=== PATIENT | male | born 1935 | race Caucasian/White ===

== ENCOUNTER 2019-08-26 08:54 | Inpatient (IN) | payer MEDICARE, MEDICAID ==
[~2019-08-26] VITALS: Ht 175.3 cm; Wt 66.2 kg
--- NOTE | ~2019-08-26 | EMS ---
[address] [address] EMS Patient Care Report Name: SAUL MARCUS Room: [address] IN M.R.#: [id number] Admission: 08/26/19 Attend Phys: Luis Sauceda Discharge: Date of : 36 Report #: [id number] THIS REPORT FOR: //name// Report Transmitted: 08/26/2019 10:43 EMS Care Summary [facility] Incident [id number] @ 08/26/2019 08:19 Incident Location [address] [place] [address] Patient SAUL MARCUS Male, 83 Years 1935 Patient Address [address] [place] [address] Patient History Diabetes,Hypertension (HTN),Gastro-Esophageal Reflux Disease (GERD),Cardiac Condition - Other, Patient Allergies Codeine,Penicillin allergy,Doxycycline,Ibuprofen,Metformin,Naproxen, Patient Medications Ranitidine, ASA, Lisinopril, Isosorbide, Clopidogrel, Novolog, Finasteride, Nitroglycerin, Atorvastatin, Imodium, Vitamin B12, Levemir, Chief Complaint Dizziness Disposition Transported No Lights/[place] Dispatch Reason Sick Person Transported To [facility] Narrative Med 1 and Engine 1 were dispatched for a [age] year-old male c/o dizziness and vomiting. Upon arrival, the patient was sitting at the dining room table [address] [place] [address] EMS Patient Care Report Name: SAUL MARCUS Room: [address] ADM IN M.R.#: [id number] Admission: 08/26/19 Attend Phys: Luis mar [place] Discharge: Date of : 36 Report #: [id number] sucking a tootsie pop he was accompanied by a nurses aid. The nurses aid reported that he had just eaten his breakfast and taken his medications and he vomited up some of his breakfast. She also reported that he started to stand up and go back to his room and he felt dizzy, and that the patient has dementia it is difficult to get him to answer questions. Patient was assisted to the stretcher and secured via seatbelts and moved to the ambulance without incident. Med 1 went en route to [facility]. In the ambulance, patient's vitals were obtained and he was placed on the orthopedic rn. A 12 lead was obtained it shown Sinus Rhythm. A blood glucose was obtained with a result of 84 mg/dL. IV access was attempted twice it was unsuccessful. The patient's pupils were pin point and patient was given Narcan via nasal atomizer. Patient had no change with the Narcan. Hospital report was given via radio with no questions or orders received or requested. Med 1 arrived at the hospital. Patient was moved to Room 3 via stretcher and patient care was transferred to ER staff without incident. Med 1 returned back in service. [id number] KShook Initial Vitals @08:42P: 78,R: 18,BP: 118/74,GCS: 13,SpO2: 96,Revised Trauma: 12, @08:34P: 78,R: 18,BP: 98/74,GCS: 13,Temp: 97.9F,Glucose: 84,SpO2: 94,Revised Trauma: 12, Assessments @08:26MENTAL:Confused,Person Oriented,SKIN:Cold,Pale,HEENT:Eyes: Left: Constricted,Eyes: Right: Constricted,Head/Face: No Abnormalities,Neck/Airway: No Abnormalities,LUNG SOUNDS:ABDOMEN:PELVIS//GI:EXTREMITIES:Left Arm: No Abnormalities,Right Arm: No Abnormalities,Left Leg: No Abnormalities,Right Leg: No Abnormalities,PULSE:NEURO:Abnormal Gait, Impression Altered Mental Status Procedures @08:36 cc (22 ga) Site: Antecubital-LeftResponse: UnchangedFailed@08:43Naloxone - 4 Milligrams (mg) - IntranasalResponse: Unchanged@08:28StretcherResponse: Unchanged Timeline 08:16,Call Received 08:19,Dispatched 08:19,[place] [address] EMS Patient Care Report Name: SAUL MARCUS Room: [address] ADM IN M.R.#: [id number] Admission: 08/26/19 Attend Phys: Luis Sauceda Discharge: Date of : 36 Report #: [id number] 08:20,On Scene 08:21,At Patient 08:28,Stretcher,Response: Unchanged 08:29,Depart Scene 08:34,BP: 98/74 M,PULSE: 78,RR: 18 R,SPO2: 94 Ox,ETCO2: ,B,PAIN: ,GCS: 13, 08:36, cc 22 ga Site: Antecubital-Left,Response: UnchangedFailed, 08:42,BP: 118/74 M,PULSE: 78,RR: 18 R,SPO2: 96 Ox,ETCO2: ,BG: ,PAIN: ,GCS: 13, 08:43,Naloxone - 4 Milligrams (mg) - Intranasal,Response: Unchanged 08:50,At Destination 09:22,Call Closed 09:22,In District Disclaimer v1.1 Copyright 2020 [employer] This EMS Care Summary contains data elements from the applicable legal record (which may be displayed differently). It is designed to provide pertinent information for the following purposes: continuity of care, clinical quality, and state data reporting. The complete legal record is available to ED staff and administrators of the receiving hospital in [employer]'s Patient Tracker. All data is provided "as is."
--- NOTE | ~2019-08-26 | CON ---
[address] [address] CONSULTATION Name: SAUL MARCUS Room: [address] IN M.R.#: [id number] Admission: 08/26/19 Attend Phys: Luis Sauceda Discharge: Date of : 36 Report #: [id number] THIS REPORT FOR: //name// cc: Sara Sims Ahmad W. DO ~ THIS REPORT FOR: //name// CC: Sara Martini DATE OF SERVICE: 08/27/2019 HISTORY OF PRESENT ILLNESS: This is an 83-year-old male patient who was evaluated by me for altered mental status. The patient does not provide any reliable history. I will try to reach some member of the family. I talked to the patient's nurse and she indicated that this patient has a history of dementia. She has talked to the daughter who indicated that the patient is back to his baseline. The patient had some altered mental status and dizziness. He has some pinpoint pupils when it happened. He has improved and according to the nurses, the daughter told them that the patient is back to his baseline. REVIEW OF SYSTEMS: A 14-point review of system was carried out in this patient. He has a history of stroke and he had one episode of vomiting. He lives in an assisted living. That is all the 14-point review of system I can get in this patient. From the records, it would appear that he has dementia. He lives in assisted living and he has a prior history of stroke. His strokes are showing up on CT of the head and MRI of the brain. I do not know what the etiology of the stroke was. It looks like the patient is already on aspirin and Plavix. He cannot tell me how long he has been taking that. That was his relevant 14-point review of system. PAST MEDICAL HISTORY: Positive for stroke. FAMILY HISTORY: Unavailable from the patient. SOCIAL HISTORY: As per records. The patient lives in assisted living. PHYSICAL EXAMINATION: The patient's examination indicates the patient is alert and responsive, but his memory is very poor. He does not know why he is here and is unable to cooperate with most of the examination. I do not see any focalities the best I can tell in cranial. Neuromuscular examination, but it is tough to tell. He is well-built individual who does not have any dysmorphic features of eyes, ears and face. He has no edema. He has no thyroid mass. His blood pressure is 163/89, respirations 18, pulse is 74, temperature is 97.8. LABORATORY DATA: His white count is normal at 6.6. [place] [address] CONSULTATION Name: SAUL MARCUS Room: [address] IN .R.#: [id number] Admission: 08/26/19 Attend Phys: Luis Sauceda Discharge: Date of : 36 Report #: [id number] carotid Doppler, which was reviewed. MRI showed old strokes with some question of new strokes. IMPRESSION AND PLAN: If this patient is already on a combination of aspirin and Plavix, I am not sure much can be done about the strokes until we find some vasculitis, but even with vasculitis, the management is going to be difficult with what appeared to be pretty significant dementia. I will contact the patient's family to see how aggressive they want to be in this patient. I will get an EEG done because the patient is predisposed for seizures because of the patient's prior history of strokes, which is well demonstrated on the patient's CT scan and MRI and will leave further recommendation. By: 1243 1301Pjuno Ortiz MD /nt
[2019-08-26 08:55] VITALS: BP 111/66
[2019-08-26] MEDS ORDERED: LIPITOR 40 MG T40 M1 PO (08:58)
[2019-08-26] MEDS ORDERED: CHILDREN'S ASPI81 M1 PO (08:58)
[2019-08-26] MEDS ORDERED: GLUCOSAMINE SU500 M1 PO (08:58)
[2019-08-26] MEDS ORDERED: PROSCAR 5MG TABL5 M1 PO (08:58)
[2019-08-26] MEDS ORDERED: PLAVIX 75 MG TA75 MG PO (08:58)
[2019-08-26] MEDS ORDERED: LEVEMIR FL100 UNIT/2 SUBQ (08:59)
[2019-08-26] MEDS ORDERED: ISOSORBIDE MONO30 M1 PO (08:59)
[2019-08-26] MEDS ORDERED: ZESTRIL20 MG PO (08:59)
[2019-08-26] MEDS ORDERED: RANITIDINE HCL150 M1 PO (09:00)
[2019-08-26] MEDS ORDERED: PERINDOPRIL ERBU2 MG PO (09:00)
[2019-08-26] MEDS ORDERED: NOVOLOG MI100 UNIT/M SUBQ (09:00)
[2019-08-26] MEDS ORDERED: IMODIUM A-1 MG/7.5 M PO (09:01)
[2019-08-26] MEDS ORDERED: VITAMIN B-121000 MC2 SUBLING (09:01)
[2019-08-26] MEDS ORDERED: COUGH DROPS5.8 MG MUCOUS MEM (09:01)
[2019-08-26] MEDS ORDERED: NITROSTAT0.4 M1 SUBLING (09:02)
[2019-08-26 09:27] LABS: ABSOLUTE EOSINOPHILS 0.2 thou/uL (0.0-0.7); ABSOLUTE LYMPHOCYTES 0.9 thou/uL (0.8-5.3); ABSOLUTE MONOCYTES 0.6 thou/uL (0.0-1.2); BASOPHILS 0.6 %; EOSINOPHILS 2.4 %; HEMATOCRIT 32.2 % (42.0-52.0); HEMOGLOBIN 10.8 gm/dL (14.0-18.0); MCH 32.4 pg (26.0-34.0); MCHC 33.4 g/dL (28.0-37.0); MCV 97.2 fL (80.0-100.0); MONOCYTES 8.5 %; NUCLEATED RBCS 0 /100WBC; PLATELET COUNT* 134 thou/uL (150-400); POLYS 75.5 %; RBC 3.32 mil/uL (4.50-6.00); RDW-CV 13.4 % (10.5-14.5); WBC 6.6 thou/uL (4.0-11.0)
[2019-08-26 09:33] LABS: CALCIUM 7.5 mg/dL (8.5-10.1); CREATININE 1.2 mg/dL (0.6-1.3)
[2019-08-26 09:34] LABS: APTT 30.3 Seconds (25.0-31.3); INR 1.2; PROTIME 12.2 Seconds (9.20-11.50)
[2019-08-26 09:44] LABS: ALBUMIN 2.8 g/dL (3.4-5.0); TOTAL BILIRUBIN 0.2 mg/dL (<0.1-1.0); TOTAL PROTEIN 5.5 g/dL (6.4-8.2)
[2019-08-26 11:20] VITALS: BP 140/71
[2019-08-26 16:00] VITALS: BP 169/88
[2019-08-26 16:48] LABS: AMP/METHAMP Negative (Negative); BARBITURATES Negative (Negative); BENZODIAZEPINES Negative (Negative); COCAINE Negative (Negative); METHADONE Negative (Negative); OPIATES Negative (Negative); PCP Negative (Negative); THC Negative (Negative)
[2019-08-26 19:30] VITALS: BP 135/73
[2019-08-27] VITALS: BP 126/66
[2019-08-27 04:00] VITALS: BP 126/70
[2019-08-27 05:27] LABS: ALBUMIN 2.8 g/dL (3.4-5.0); ALKALINE PHOSPHATASE 94 U/L (46-116); ANION GAP 7 mmol/L (7-16); BUN 16 mg/dL (7-18); CALCIUM 7.8 mg/dL (8.5-10.1); CHLORIDE 111 mmol/L (98-107); CHOLESTEROL 105 mg/dL (<200); CO2 25 mmol/L (21-32); CREATININE 0.8 mg/dL (0.6-1.3); GLUCOSE 93 mg/dL (70-99); HDL CHOLESTEROL 42 mg/dL (>40); LDL CHOLESTEROL 42 mg/dL (<100); POTASSIUM 3.5 mmol/L (3.5-5.1); SGOT 32 U/L (15-37); SGPT 39 U/L (30-65); SODIUM 143 mmol/L (136-145); TC:HDL 2.5 Ratio (Not establshd); TOTAL BILIRUBIN 0.3 mg/dL (<0.1-1.0); TOTAL PROTEIN 5.7 g/dL (6.4-8.2); TRIGLYCERIDE 106 mg/dL (<150); VLDL 21 mg/dL (<40)
[2019-08-27 05:33] LABS: SERUM ASSESSMENT CLEAR
[2019-08-27 08:00] VITALS: BP 127/83
[2019-08-27 12:27] VITALS: BP 163/89
--- NOTE | 2019-08-27 13:13 | EKG ---
[place] [address] ELECTROCARDIOGRAM REPORT Name: SAUL MARCUS Room: [address] ADM IN .R.#: [id number] Admission: 08/26/19 Attend Phys: Luis mar Sa Discharge: Date of : 37 Date of Service: 08/26/19 0859 Report #: [id number] THIS REPORT FOR: //name// [facility] ED Test Date: 2019-08-26 Test Time: 08:59:22 Pat Name: SAUL MARCUS Department: Room: [facility] Gender: M Snap Attacher: : 1935 Requested By: Sidney Rodriguez Order Number: [id number] MD: Abel Brush Measurements Intervals [place] Rate: 70 P: 52 ID: [id number] QRS: -28 QRSD: 111 T: 106 QT: 432 QTc: 467 Interpretive Statements Sinus rhythm Inferior infarct, old Abnormal lateral Q waves No previous ECG available for comparison Electronically Signed On 08-27-2019 13:11:56 CDT by Abel Brush [email or web address] <ELECTRONICALLY SIGNED> By: Abel Brush MD, [facility] 08/27/19 1311 0859 0859 Abel Brush MD, [facility] /EPI
[2019-08-27 16:12] VITALS: BP 158/85
--- NOTE | 2019-08-27 16:51 | 2DMMODE ---
[place] [address] 2 D/M-MODE ECHOCARDIOGRAM Name: SAUL MARCUS Room: [address] IN .Fawn.#: [id number] Admission: 08/26/19 Attend Phys: Luis mar Sa Discharge: Date of : 37 Date of Service: 08/27/19 1649 Report #: [id number] THIS REPORT FOR: cc: Sara Sims,Abel Cage MD [facility] ~ APPROVED REPORT Study performed: 08/27/2019 13:44:45 EXAM: Comprehensive 2D, Doppler, and color-flow Echocardiogram Patient Location: In-Patient Room #: [facility] Status: routine BSA: 1.80 HR: 69 bpm BP: 126/70 mmHg Rhythm: NSR Other Information Study Quality: Good Indications CVA/TIA Echo Enhancing Agent Indication: Rule out Shunt Agent(s) / Amount(s) Used: Agitated Saline 10 cc 2D Dimensions IVSd: 13.08 (7-11mm) LVOT Diam: 18.78 (18-24mm) LVDd: 43.49 mm PWd: 9.74 (7-11mm) Ascending Ao: 33.66 (22-36mm) LVDs: 33.28 (25-40mm) Aortic Root: 35.79 mm Volumes Left Atrial Volume (Systole) LA ESV Index: 29.30 mL/m2 Aortic Valve AoV Peak Ronny.: 1.39 m/s AO Peak Gr.: 7.77 mmHg LVOT Max P.45 mmHg AO Mean Gr.: 4.16 mmHg LVOT Mean P.62 [place] [address] 2 D/M-MODE ECHOCARDIOGRAM Name: SAUL MARCUS Room: [address] IN .R.#: [id number] Admission: 08/26/19 Attend Phys: Luis mar Sa Discharge: Date of : 37 Date of Service: 08/27/19 1649 Report #: [id number] LVOT Max V: 0.93 m/s AO V2 VTI: 28.91 cm LVOT Mean V: 0.58 m/s ARIC (VTI): 2.06 cm2 LVOT V1 VTI: 21.49 cm Mitral Valve E/A Ratio: 0.47 MV Decel. Time: 260.29 ms MV E Max Ronny.: 0.56 m/s MV PHT: 75.49 ms MVA (PHT): 2.91 cm2 TDI E/Lateral E': 7.00 E/Medial E': 7.00 Medial E' Ronny.: 0.08 m/s Lateral E' Ronny.: 0.08 m/s Pulmonary Valve PV Peak Ronny.: 0.94 m/s PV Peak Gr.: 3.57 mmHg Tricuspid Valve RAP Estimate: 5.00 mmHg TR Peak Gr.: 29.54 mmHg RVSP: 34.00 mmHg PA Pressure: 34.00 mmHg Left Ventricle The left ventricle is normal size. paradoxical septal motion consistent with previous thoracotomy There is normal left ventricular wall thickness. Left ventricular systolic function is normal. The left ventricular ejection fraction is within the normal range. LVEF is 55-60%. Grade I - abnormal relaxation pattern. Right Ventricle The right ventricle is normal size. The right ventricular systolic function is normal. Atria Left atrium is mildly dilated. The interatrial septum is intact with no evidence for an atrial septal defect. The right atrium size is normal. Aortic Valve Mild aortic valve sclerosis. No aortic regurgitation is present. There is no aortic valvular stenosis. Mitral Valve There is mitral annular calcification. [place] [address] 2 D/M-MODE ECHOCARDIOGRAM Name: SAUL MARCUS Room: [address] IN .R.#: [id number] Admission: 08/26/19 Attend Phys: Luis mar Sa Discharge: Date of : 36 Date of Service: 08/27/19 1649 Report #: [id number] evidence of mitral valve stenosis. Tricuspid Valve The tricuspid valve is normal in structure. Mild tricuspid regurgitation. estimated pa pressure 40 mm hg Pulmonic Valve The pulmonary valve is normal in structure. There is no pulmonic valvular regurgitation. Great Vessels The aortic root is normal in size. IVC is normal in size and collapses >50% with inspiration. Pericardium There is no pericardial effusion. <Conclusion> LVEF is 55-60%. Left atrium is mildly dilated. Mild aortic valve sclerosis. The interatrial septum is intact with no evidence for an atrial septal defect. Mild tricuspid regurgitation. estimated pa pressure 40 mm hg <ELECTRONICALLY SIGNED> By: Abel Brush MD, FACC 08/27/191648 48 48 Abel Brush MD, FACC /INF
--- NOTE | 2019-08-27 17:26 | CON ---
[address] [address] CONSULTATION Name: AMRITSAUL Room: [address] IN M.R.#: [id number] Admission: 08/26/19 Attend Phys: Luis Sauceda Discharge: Date of : 36 Report #: [id number] THIS REPORT FOR: //name// cc: Sara Sims Ahmad W. DO THIS REPORT FOR: //name// CC: Sara Martini DATE OF SERVICE: 08/27/2019 CARDIOLOGY CONSULTATION HISTORY OF PRESENT ILLNESS: The patient is an 83-year-old white male, group home patient who I was asked to see because of his history of coronary artery disease. Unfortunately, the patient has never been admitted here to [place] before. He has an extensive past medical history. He apparently has had previous coronary artery bypass surgery and stent placement in [place]. He has had previous left carotid endarterectomy. He has a history of diabetes. He has a history of dementia and is currently in a group home. He was admitted to [place] yesterday with lightheadedness and vomiting. He was brought to the Emergency Room by ambulance. The patient was felt to possibly have a stroke. Because of his history of coronary artery disease, Cardiology consultation was requested. The patient denies any recent chest pain, shortness of breath, palpitations or syncope. PAST MEDICAL HISTORY: Otherwise significant for diabetes. MEDICATIONS: At group home include aspirin, Lipitor, Plavix, Imdur, insulin, lisinopril, Plendil, ranitidine. ALLERGIES: HE HAS AN ALLERGY TO CODEINE, DOXYCYCLINE, PENICILLIN, TERAZOSIN. FAMILY HISTORY: Cannot be obtained. SOCIAL HISTORY: He quit smoking in the past. He is . No alcohol abuse. REVIEW OF SYSTEMS: He apparently had a laparotomy at [place] recently. He denies no history of stroke, asthma, kidney disease or cancer. PHYSICAL EXAMINATION: GENERAL: Revealed an elderly female, appeared in no distress. VITAL SIGNS: Blood pressure 120/70, pulse 60, [place] [address] CONSULTATION Name: SAUL MARCUS Room: [address] IN [facility]#: [id number] Admission: 08/26/19 Attend Phys: Luis Sauceda Discharge: Date of : 36 Report #: [id number] HEENT: He was anicteric. Conjunctivae pink. Mucous membranes moist. NECK: Veins do not appear distended. CHEST: Clear to auscultation. CARDIOVASCULAR: Regular rate and rhythm. ABDOMEN: Soft. EXTREMITIES: Had no edema. SKIN: Warm and dry. NEUROLOGIC: He is able to move all extremities. RADIOLOGICAL DATA: His ECG showed a sinus rhythm, evidence of previous inferior infarction. His x-rays in the Emergency Room recently done yesterday included a chest x-ray that showed normal heart size, clear lung [place]. CT scan of the head was performed yesterday without contrast that showed previous infarction. No acute abnormality. Carotid Doppler study was performed yesterday that showed no significant stenosis. LABORATORY DATA: Sodium 143, creatinine 0.8, albumin 2.8. Troponin 0.06. BNP 948. TSH 0.7. His white blood cell count 6.6, hematocrit 32.2. IMPRESSION AND RECOMMENDATIONS: 1. Coronary artery disease. Previous bypass surgery. The patient is on Plavix. 2. Previous carotid endarterectomy. No restenosis. 3. Hyperlipidemia. The patient is on a statin drug. 4. Hypertension. The patient is on an angiotensin-converting enzyme inhibitor and calcium josé. 5. Dementia. The patient is a no code blue. 6. Dizziness. Reason unclear. 7. Nausea and vomiting. No evidence of acute abdomen. 8. Previous stroke. 9. Anemia. No history of bleeding. <ELECTRONICALLY SIGNED> By: Abel Brush MD, [facility] 08/27/19 1726 0907 [id number] Brush MD, [facility] /nt
[2019-08-27 19:40] VITALS: BP 139/69
[2019-08-28 00:37] VITALS: BP 108/64
[2019-08-28 02:07] LABS: GLYCOHEMOGLOBIN (HGB A1C) 6.5 % (4.8-5.6)
[2019-08-28 03:56] VITALS: BP 92/52
[2019-08-28 08:00] VITALS: BP 96/52
[2019-08-28 11:47] VITALS: BP 144/79
[2019-08-28] MEDS ORDERED: NOVOLOG MI100 UNIT/M SUBQ (12:28)
[2019-08-28] MEDS ORDERED: CHILDREN'S ASPI81 M1 PO (12:28)
[2019-08-28 13:53] VITALS: BP 144/79
== END 2019-08-28 14:45 | DRG 64 ==
LOC: M.ERS 08:54 → M.TBA-ER 10:18 → M.2W 10:18
PROVIDERS: Emergency Medicine Emergency Medical Services; ADMIT Family Medicine
DX: I63.89 Other cerebral infarction (principal); E43 Unspecified severe protein-calorie malnutrition; I24.8 Other forms of acute ischemic heart disease; E78.5 Hyperlipidemia, unspecified; K21.9 Gastro-esophageal reflux disease without esophagitis; F03.90 Unspecified dementia, unspecified severity, without behavioral disturbance, psychotic disturbance, mood disturbance, and anxiety; I25.10 Atherosclerotic heart disease of native coronary artery without angina pectoris; E83.51 Hypocalcemia; I10 Essential (primary) hypertension; D64.9 Anemia, unspecified; E11.9 Type 2 diabetes mellitus without complications; Z68.21 Body mass index [BMI] 21.0-21.9, adult; Z79.4 Long term (current) use of insulin; Z79.82 Long term (current) use of aspirin; Z79.01 Long term (current) use of anticoagulants; Z79.899 Other long term (current) drug therapy; Z88.5 Allergy status to narcotic agent; Z88.0 Allergy status to penicillin; Z88.8 Allergy status to other drugs, medicaments and biological substances; Z87.891 Personal history of nicotine dependence; Z95.5 Presence of coronary angioplasty implant and graft; Z95.1 Presence of aortocoronary bypass graft

== ENCOUNTER 2021-06-01 12:31 | Inpatient (IN) | payer MEDICARE, MEDICAID ==
[~2021-06-01] VITALS: Ht 175.3 cm; Wt 51.1 kg
--- NOTE | ~2021-06-01 | EMS ---
[address] [address] EMS Patient Care Report Name: SAUL MARCUS Room: [facility]#: [id number] Admission: 06/01/21 Attend Phys: Discharge: Date of : 36 Report #: [id number] THIS REPORT FOR: //name// Report Transmitted: 06/01/2021 12:58 EMS Care Summary [facility] Incident [id number] @ 06/01/2021 11:47 Incident Location [address] [place] [address] Patient SAUL MARCUS Male, 85 Years 1935 Patient Address [address] [place] [address] Patient History Hypertension (HTN),Gastro-Esophageal Reflux Disease (GERD),Cardiac Condition - Other,Osteoarthritis,Type 2 Diabetes, Patient Allergies Codeine,Penicillin allergy,Ibuprofen, Patient Medications Metformin, Chief Complaint Diarrhea Disposition Transported No Lights/[place] Dispatch Reason Sick Person Transported To [facility] Narrative Med 1 and Engine 1 were dispatched for a [age] year old male who lives at [facility] an assisted living facility. Upon arrival, staff met us at the door and led us to the patients room they said he has had nausea and diarrhea [address] [address] EMS Patient Care Report Name: SAUL MARCUS Room: [facility]#: [id number] Admission: 06/01/21 Attend Phys: Discharge: Date of : 36 Report #: [id number] for the last week and his Oxygen saturations were low. They contacted his physician and told them to call 911 for hypoxia. Upon arrival, patient was sitting on his couch very lethargic and he had uneaten plates of food on his end table. Patient was not able to answer our questions because he was so lethargic. Nursing staff reported this is not normal for him. Patient's initial Oxygen saturation was 86% on room air. Patient was place on a NC at 6 lpm. Patient was able to follow commands and was assisted to a standing position and moved onto our stretcher. Patient was secured via seatbelts and moved to the ambulance without incident. In the ambulance, patient was placed on capnography and and vitals were obtained. Patient was placed on the quality assurance monitor chassis. IV access was attempted 2x and was unsuccessful. Patient's pupils were pinpoint patient was given Narcan 4mg via nasal atomizer. Patient became more alert for a few seconds then went back to being lethargic. Patients Oxygen saturation was still low so patient was placed on a NRB at 15 lpm. Patients Oxygen saturation improved. Hospital report was given to [facility] via radio no questions or orders were received or requested. Med 1 arrived at the hospital. Patient was octavia into the ER via stretcher without incident to room 16. Patient care was transferred to ER staff. Med 1 returned back into service. Initial Vitals @11:59P: 91,SpO2: 73, @12:07P: 88,EtCO2: 7,SpO2: 87, @11:58P: 88,BP: 130/64,SpO2: 77, @12:06P: 90,EtCO2: 4,SpO2: 87, @12:03P: 89,EtCO2: 26,SpO2: 76, @11:52BP: 114/68, @12:17P: 86,R: 14,EtCO2: 9,SpO2: 100, @12:22P: 85,R: 16,EtCO2: 30,SpO2: 99, @12:05P: 91,R: 14,EtCO2: 7,SpO2: 86, @12:12P: 87,R: 18,EtCO2: 15,SpO2: 96, @12:01P: 129,R: 16,GCS: 15,SpO2: 75, @12:18P: 87,R: 18,BP: 138/68,Pain: 0/10,GCS: 15,EtCO2: 10,SpO2: 94,Revised Trauma: 12, @12:08P: 88,R: 14,BP: 134/77,Pain: 0/10,GCS: 15,Revised Trauma: 12, Impression Dehydration Timeline 11:47,Call Received [facility] [address] [place] [address] EMS Patient Care Report Name: SAUL [facility]ARCUS [id number] Admission: 06/01/21 Attend Phys: Discharge: Date of : 36 Report #: [id number] 11:47,Dispatched 11:47,En Route 11:48,On Scene 11:49,At Patient 11:52,BP: 114/68 M,PULSE: ,RR: R,SPO2: Ox,ETCO2: ,BG: ,PAIN: ,GCS: , 11:58,BP: 130/64 M,PULSE: 88,RR: R,SPO2: 77 Ox,ETCO2: ,BG: ,PAIN: ,GCS: , 11:59,BP: / M,PULSE: 91,RR: R,SPO2: 73 Ox,ETCO2: ,BG: ,PAIN: ,GCS: , 12:01,BP: / M,PULSE: 129,RR: 16 R,SPO2: 75 Ox,ETCO2: ,BG: ,PAIN: ,GCS: 15, 12:03,BP: / M,PULSE: 89,RR: R,SPO2: 76 Ox,ETCO2: 26 ,BG: ,PAIN: ,GCS: , 12:05,BP: / M,PULSE: 91,RR: 14 R,SPO2: 86 Ox,ETCO2: 7 ,BG: ,PAIN: ,GCS: , 12:06,BP: / M,PULSE: 90,RR: R,SPO2: 87 Ox,ETCO2: 4 ,BG: ,PAIN: ,GCS: , 12:07,BP: / M,PULSE: 88,RR: R,SPO2: 87 Ox,ETCO2: 7 ,BG: ,PAIN: ,GCS: , 12:08,Depart Scene 12:08,BP: 134/77 M,PULSE: 88,RR: 14 R,SPO2: Ox,ETCO2: ,BG: ,PAIN: 0,GCS: 15, 12:12,BP: / M,PULSE: 87,RR: 18 R,SPO2: 96 Ox,ETCO2: 15 ,BG: ,PAIN: ,GCS: , 12:17,BP: / M,PULSE: 86,RR: 14 R,SPO2: 100 Ox,ETCO2: 9 ,BG: ,PAIN: ,GCS: , 12:18,BP: 138/68 M,PULSE: 87,RR: 18 R,SPO2: 94 Ox,ETCO2: 10 ,BG: ,PAIN: 0,GCS: 15, 12:22,BP: / M,PULSE: 85,RR: 16 R,SPO2: 99 Ox,ETCO2: 30 ,BG: ,PAIN: ,GCS: , 12:27,At Destination 12:58,Call Closed 12:58,In District Disclaimer v1.1 Copyright 2021 [employer] This EMS Care Summary contains data elements from the applicable legal record (which may be displayed differently). It is designed to provide pertinent information for the following purposes: continuity of care, clinical quality, and state data reporting. The complete legal record is available to ED staff and administrators of the receiving hospital in [employer]'s Patient Tracker. All data is provided "as is."
[~2021-06-01 12:31] MED LIST: CHILDREN'S ASPI81 M1 PO; COUGH DROPS5.8 MG MUCOUS MEM; GLUCOSAMINE SU500 M1 PO; IMODIUM A-1 MG/7.5 M PO; ISOSORBIDE MONO30 M1 PO; LEVEMIR FL100 UNIT/2 SUBQ; LIPITOR 40 MG T40 M1 PO; NITROSTAT0.4 M1 SUBLING; NOVOLOG MI100 UNIT/M SUBQ; PERINDOPRIL ERBU2 MG PO; PLAVIX 75 MG TA75 MG PO; PROSCAR 5MG TABL5 M1 PO; RANITIDINE HCL150 M1 PO; VITAMIN B-121000 MC2 SUBLING; ZESTRIL20 MG PO
[2021-06-01] MEDS ORDERED: FAMOTIDINE 20 M20 MG PO (12:42)
[2021-06-01] MEDS ORDERED: FLONASE 0.05%50 MCG NARES (12:42)
[2021-06-01] MEDS ORDERED: METFORMIN HCL500 M3 PO (12:43)
[2021-06-01 13:45] LABS: PLATELET ESTIMATE ADEQUATE
[2021-06-01 14:13] LABS: BASOPHILS 0.2 %; NUCLEATED RBCS 0 /100WBC
[2021-06-01 14:14] LABS: ABSOLUTE MONOCYTES 0.5 thou/uL (0.0-1.2); ABSOLUTE NEUTROPHILS 7.9 thou/uL (1.6-8.1); HEMATOCRIT 37.9 % (42.0-52.0); HEMOGLOBIN 12.4 gm/dL (14.0-18.0); MCH 30.5 pg (26.0-34.0); MCHC 32.6 g/dL (28.0-37.0); MCV 93.4 fL (80.0-100.0); RBC 4.06 mil/uL (4.50-6.00); RDW-CV 13.2 % (10.5-14.5); WBC 9.4 thou/uL (4.0-11.0)
[2021-06-01 14:15] LABS: MPV 10.2 fl. (7.2-11.1); PLATELET COUNT* 192 thou/uL (150-400)
[2021-06-01 14:54] LABS: URINE BLOOD 2+ (Negative); URINE CLARITY CLEAR; URINE COLOR YELLOW; URINE GLUCOSE-RANDOM TRACE (Negative); URINE KETONES TRACE (Negative); URINE LEUKOCYTES-REFLEX NEGATIVE (Negative); URINE NITRITE-REFLEX NEGATIVE (Negative); URINE PROTEIN 2+ (Negative); URINE SPECIFIC GRAVITY 1.025 (1.005-1.030); URINE UROBILINOGEN 0.2 E.U./dl (0.2-1.0)
[2021-06-01 14:56] LABS: ICTOTEST (BILI CONFIRMATORY) Negative (Negative); URINE BILIRUBIN 2+ (Negative)
[2021-06-01 15:03] LABS: AMP/METHAMP Negative (Negative); BACTERIA-REFLEX 1-9 Few /HPF (None Seen); BARBITURATES Negative (Negative); BENZODIAZEPINES Negative (Negative); COCAINE Negative (Negative); CRYSTALS None Seen /LPF (None Seen); HYALINE CASTS 0-3 Few /LPF (None Seen); METHADONE Negative (Negative); OPIATES Negative (Negative); PCP Negative (Negative); SQUAMOUS NONE SEEN /LPF (0-3); THC Negative (Negative); URINE WBC-REFLEX 0-5 Rare /HPF (0-5)
[2021-06-01 15:03] LABS: CALCIUM 7.5 mg/dL (8.5-10.1); CREATININE 1.2 mg/dL (0.6-1.3); POTASSIUM 3.2 mmol/L (3.5-5.1)
[2021-06-01 15:04] LABS: URINE RBC 3-10 Few /HPF (0-2)
[2021-06-01 15:14] LABS: ALBUMIN 2.2 g/dL (3.4-5.0); TOTAL BILIRUBIN 0.4 mg/dL (<0.1-1.0); TOTAL PROTEIN 5.6 g/dL (6.4-8.2)
[2021-06-01 18:32] VITALS: BP 113/64
[2021-06-01 21:46] VITALS: BP 132/70
[2021-06-02] VITALS: BP 183/96
[2021-06-02 04:00] VITALS: BP 163/90
[2021-06-02 09:15] VITALS: BP 137/85
--- NOTE | 2021-06-02 10:02 | EKG ---
[place] [address] ELECTROCARDIOGRAM REPORT Name: SAUL MARCUS Francisco Room: [address] IN [facility].#: [id number] Admission: 06/01/21 Attend Phys: Glenna Guillaume Discharge: Date of : 37 Date of Service: 06/01/21 1253 Report #: [id number] THIS REPORT FOR: //name// [facility] ED Test Date: 2021-06-01 Test Time: 12:53:13 Pat Name: SAUL MARCUS Department: Room: Gender: M Senior Environmental Engineer: : 1935 Requested By: Sidney Rodriguez Order Number: [id number] MD: Gabriel Henderson Measurements Intervals [place] Rate: 82 P: 53 AR: 139 QRS: 3 QRSD: 106 T: 66 QT: 406 QTc: 475 Interpretive Statements Sinus rhythm Probable left atrial enlargement Low voltage, extremity leads Diffuse nonspecific ST-T alterations Compared to ECG 08/26/2019 08:59:22 Low QRS voltage now present ST (T wave) deviation now present Myocardial infarct finding no longer present Q waves no longer present Electronically Signed On 06-01-2021 14:14:26 [facility] by Gabriel Henderson [email or web address] <ELECTRONICALLY SIGNED> By: Gabriel Henderson MD, [facility] 06/01/21 1414 1253 1253 Gabriel Henderson MD, [facility] /EPI
[2021-06-02 12:09] VITALS: BP 159/74
[2021-06-02 17:20] VITALS: BP 158/78
[2021-06-02 20:00] VITALS: BP 139/80
[2021-06-03] VITALS: BP 135/75
[2021-06-03 08:00] VITALS: BP 127/76
[2021-06-03 12:35] VITALS: BP 155/85
[2021-06-03 16:00] VITALS: BP 155/85
[2021-06-03 20:00] VITALS: BP 150/59
[2021-06-04] VITALS (7 sets, daily range): BP systolic 125–175; BP diastolic 65–100
[2021-06-04 04:19] LABS: HEMATOCRIT 37.4 % (42.0-52.0); HEMOGLOBIN 12.1 gm/dL (14.0-18.0); MCH 30.8 pg (26.0-34.0); MCHC 32.3 g/dL (28.0-37.0); MCV 95.4 fL (80.0-100.0); MPV 9.5 fl. (7.2-11.1); NUCLEATED RBCS 0 /100WBC; PLATELET COUNT* 230 thou/uL (150-400); RBC 3.92 mil/uL (4.50-6.00); RDW-CV 13.1 % (10.5-14.5); WBC 9.3 thou/uL (4.0-11.0)
[2021-06-04 04:47] LABS: CALCIUM 7.6 mg/dL (8.5-10.1); CREATININE 0.8 mg/dL (0.6-1.3); MAGNESIUM 1.4 mg/dL (1.8-2.4); PHOSPHORUS* 1.2 mg/dL (2.5-4.9); TOTAL BILIRUBIN 0.6 mg/dL (<0.1-1.0); TOTAL PROTEIN 5.4 g/dL (6.4-8.2)
[2021-06-04 04:55] LABS: POTASSIUM 2.9 mmol/L (3.5-5.1)
[2021-06-04 06:16] LABS: ABSOLUTE EOSINOPHILS 0.1 thou/uL (0.0-0.7); ABSOLUTE LYMPHOCYTES 0.5 thou/uL (0.8-5.3); ABSOLUTE MONOCYTES 0.5 thou/uL (0.0-1.2); ABSOLUTE NEUTROPHILS 8.3 thou/uL (1.6-8.1); HYPOCHROMASIA 1+; PLATELET ESTIMATE ADEQUATE
[2021-06-04 11:08] LABS: BE 6.3 mmol/L (-2 to +3); PCO2 39.1 mmHg (35.0-45.0); pH 7.501 (7.340-7.450)
[2021-06-04 11:10] LABS: PO2 54.8 mmHg (75.0-100.0)
[2021-06-04 12:23] LABS: APTT 38.9 Seconds (25.0-31.3); PROTIME 20.4 Seconds (9.20-11.50)
[2021-06-04 14:02] LABS: BE 7.4 mmol/L (-2 to +3); PCO2 40.5 mmHg (35.0-45.0); pH 7.504 (7.340-7.450)
[2021-06-04 16:37] LABS: PCO2 40.1 mmHg (35.0-45.0); PO2 80.5 mmHg (75.0-100.0); pH 7.476 (7.340-7.450)
[2021-06-05 04:00] VITALS: BP 148/90
[2021-06-05 07:22] LABS: ABSOLUTE LYMPHOCYTES 0.4 thou/uL (0.8-5.3); ABSOLUTE MONOCYTES 0.3 thou/uL (0.0-1.2); ABSOLUTE NEUTROPHILS 8.2 thou/uL (1.6-8.1); BASOPHILS 0.2 %; EOSINOPHILS 0.2 %; HEMATOCRIT 35.4 % (42.0-52.0); HEMOGLOBIN 11.6 gm/dL (14.0-18.0); LYMPHOCYTES 4.9 %; MCH 30.5 pg (26.0-34.0); MCHC 32.7 g/dL (28.0-37.0); MCV 93.1 fL (80.0-100.0); MPV 10.2 fl. (7.2-11.1); NUCLEATED RBCS 0 /100WBC; PLATELET COUNT* 211 thou/uL (150-400); POLYS 91.7 %; RBC 3.81 mil/uL (4.50-6.00)
[2021-06-05 07:42] LABS: CALCIUM 7.3 mg/dL (8.5-10.1); CREATININE 0.9 mg/dL (0.6-1.3); PHOSPHORUS* 1.4 mg/dL (2.5-4.9); POTASSIUM 3.5 mmol/L (3.5-5.1); TOTAL BILIRUBIN 0.6 mg/dL (<0.1-1.0)
[2021-06-05 08:00] VITALS: BP 147/86
[2021-06-05 16:00] VITALS: BP 136/79
[2021-06-05 17:45] LABS: APTT 39.5 Seconds (25.0-31.3); INR 2.5; PROTIME 24.6 Seconds (9.20-11.50)
[2021-06-05 20:15] VITALS: BP 102/59
[2021-06-06] VITALS: BP 130/67
[2021-06-06 04:00] VITALS: BP 144/89
[2021-06-06 07:35] LABS: GLYCOHEMOGLOBIN (HGB A1C) 11.1 % (4.8-5.6)
[2021-06-06 08:00] VITALS: BP 147/86
[2021-06-06 08:50] LABS: ABSOLUTE LYMPHOCYTES 0.4 thou/uL (0.8-5.3); ABSOLUTE MONOCYTES 0.2 thou/uL (0.0-1.2); ABSOLUTE NEUTROPHILS 10.6 thou/uL (1.6-8.1); BASOPHILS 0.3 %; HEMATOCRIT 40.2 % (42.0-52.0); LYMPHOCYTES 3.8 %; MCH 30.6 pg (26.0-34.0); MCHC 32.3 g/dL (28.0-37.0); MCV 94.6 fL (80.0-100.0); MONOCYTES 2.1 %; MPV 9.9 fl. (7.2-11.1); NUCLEATED RBCS 0 /100WBC; PLATELET COUNT* 190 thou/uL (150-400); POLYS 93.8 %; RBC 4.25 mil/uL (4.50-6.00); RDW-CV 13.1 % (10.5-14.5); WBC 11.3 thou/uL (4.0-11.0)
[2021-06-06 08:55] LABS: APTT 38.3 Seconds (25.0-31.3); INR 2.2; PROTIME 22.3 Seconds (9.20-11.50)
[2021-06-06 09:18] LABS: ALBUMIN 2.2 g/dL (3.4-5.0); CALCIUM 8.1 mg/dL (8.5-10.1); CREATININE 0.9 mg/dL (0.6-1.3); MAGNESIUM 1.9 mg/dL (1.8-2.4); PHOSPHORUS* 2.4 mg/dL (2.5-4.9); POTASSIUM 3.3 mmol/L (3.5-5.1); TOTAL BILIRUBIN 0.6 mg/dL (<0.1-1.0); TOTAL PROTEIN 6.2 g/dL (6.4-8.2)
[2021-06-06 12:48] VITALS: BP 119/68
[2021-06-06 17:34] VITALS: BP 125/76
[2021-06-06 20:00] VITALS: BP 108/62
[2021-06-07] VITALS: BP 127/80
[2021-06-07 04:00] VITALS: BP 155/80
[2021-06-07 05:12] LABS: HEMATOCRIT 34.5 % (42.0-52.0); HEMOGLOBIN 11.3 gm/dL (14.0-18.0); MCH 30.5 pg (26.0-34.0); MCHC 32.7 g/dL (28.0-37.0); MCV 93.1 fL (80.0-100.0); MPV 9.8 fl. (7.2-11.1); NUCLEATED RBCS 0 /100WBC; PLATELET COUNT* 194 thou/uL (150-400); RDW-CV 13.3 % (10.5-14.5); WBC 15.2 thou/uL (4.0-11.0)
[2021-06-07 05:35] LABS: ALBUMIN 1.9 g/dL (3.4-5.0); CALCIUM 7.9 mg/dL (8.5-10.1); POTASSIUM 3.3 mmol/L (3.5-5.1); TOTAL BILIRUBIN 0.4 mg/dL (<0.1-1.0); TOTAL PROTEIN 5.4 g/dL (6.4-8.2)
[2021-06-07 07:00] VITALS: BP 128/76
[2021-06-07 07:58] LABS: ABSOLUTE LYMPHOCYTES 0.6 thou/uL (0.8-5.3); ABSOLUTE NEUTROPHILS 14.4 thou/uL (1.6-8.1)
[2021-06-07 07:59] LABS: ABSOLUTE MONOCYTES 0.2 thou/uL (0.0-1.2); PLATELET ESTIMATE ADEQUATE
[2021-06-07 12:00] VITALS: BP 146/59
[2021-06-07 20:30] VITALS: BP 83/56
[2021-06-08 00:25] VITALS: BP 112/82
[2021-06-08 04:20] VITALS: BP 147/79
[2021-06-08 04:26] LABS: ABSOLUTE LYMPHOCYTES 0.2 thou/uL (0.8-5.3); ABSOLUTE MONOCYTES 0.2 thou/uL (0.0-1.2); ABSOLUTE NEUTROPHILS 14.5 thou/uL (1.6-8.1); BASOPHILS 0.2 %; HEMATOCRIT 34.4 % (42.0-52.0); HEMOGLOBIN 11.4 gm/dL (14.0-18.0); LYMPHOCYTES 1.7 %; MCH 30.5 pg (26.0-34.0); MCHC 33.1 g/dL (28.0-37.0); MCV 92.4 fL (80.0-100.0); MONOCYTES 1.4 %; MPV 9.3 fl. (7.2-11.1); NUCLEATED RBCS 0 /100WBC; PLATELET COUNT* 199 thou/uL (150-400); POLYS 96.7 %; RBC 3.72 mil/uL (4.50-6.00)
[2021-06-08 04:38] LABS: ALBUMIN 1.9 g/dL (3.4-5.0); CALCIUM 7.4 mg/dL (8.5-10.1); CREATININE 1.1 mg/dL (0.6-1.3); POTASSIUM 4.1 mmol/L (3.5-5.1); TOTAL BILIRUBIN 0.5 mg/dL (<0.1-1.0); TOTAL PROTEIN 5.2 g/dL (6.4-8.2)
[2021-06-08 08:29] VITALS: BP 163/77
[2021-06-08 14:18] VITALS: BP 120/69
[2021-06-08 18:45] VITALS: BP 108/59
[2021-06-08 22:00] VITALS: BP 110/66
[2021-06-09] VITALS: BP 133/66
[2021-06-09 04:00] VITALS: BP 144/70
[2021-06-09 06:16] LABS: ABSOLUTE LYMPHOCYTES 0.4 thou/uL (0.8-5.3); ABSOLUTE MONOCYTES 0.6 thou/uL (0.0-1.2); ABSOLUTE NEUTROPHILS 17.7 thou/uL (1.6-8.1); HEMATOCRIT 35.2 % (42.0-52.0); HEMOGLOBIN 11.5 gm/dL (14.0-18.0); MCH 30.1 pg (26.0-34.0); MCHC 32.8 g/dL (28.0-37.0); MCV 91.9 fL (80.0-100.0); MONOCYTES 3.3 %; MPV 9.3 fl. (7.2-11.1); NUCLEATED RBCS 0 /100WBC; PLATELET COUNT* 204 thou/uL (150-400); POLYS 94.7 %; RBC 3.83 mil/uL (4.50-6.00); RDW-CV 13.1 % (10.5-14.5); WBC 18.7 thou/uL (4.0-11.0)
[2021-06-09 06:27] LABS: APTT 50.9 Seconds (25.0-31.3); PROTIME 20.2 Seconds (9.20-11.50)
[2021-06-09 06:36] LABS: ALBUMIN 1.9 g/dL (3.4-5.0); CALCIUM 7.5 mg/dL (8.5-10.1); CREATININE 1.2 mg/dL (0.6-1.3); POTASSIUM 4.1 mmol/L (3.5-5.1); TOTAL BILIRUBIN 0.4 mg/dL (<0.1-1.0); TOTAL PROTEIN 5.3 g/dL (6.4-8.2)
[2021-06-09 07:50] VITALS: BP 113/73
[2021-06-09 12:00] VITALS: BP 114/62
[2021-06-09 16:00] VITALS: BP 94/56
--- NOTE | 2021-06-09 19:16 | CON ---
[address] [address] CONSULTATION Name: SAUL MARCUS Room: [address] IN .R.#: [id number] Admission: 06/01/21 Attend Phys: Nii Leonardo Discharge: Date of : 37 Report #: [id number] THIS REPORT FOR: cc: Sara Sims Ahmad W. DO Pervez, Adeel MD ~ DATE OF CONSULTATION: 06/05/2021 REQUESTING PHYSICIAN: Consult has been requested by Dr. Zheng Jensen. INDICATION FOR CONSULTATION: Acute hypoxemic respiratory failure secondary to COVID-19. HISTORY OF PRESENT ILLNESS: This is an 85-year-old gentleman, is a resident of a long-term care facility. I do not see documentation of him being on oxygen previously, does have a history of coronary artery disease as well as CABG, left ventricular ejection fraction previously is normal without elevation in right heart pressures. He also does have a history of dementia. The patient currently is severely hypoxemic. He is on 90% FiO2 with 50 liters flow and is barely saturating around 90%. He did have an episode where there was a blood pressure recorded up to 70 systolic this morning, and the patient at that time did receive a fluid bolus. The patient's blood pressure right now is in the range of 135. He does have significant electrolyte abnormalities; however, his BUN and creatinine are normal. He has a midline in place. Interestingly, there is an INR, which was done yesterday, which is 2.0. The patient is not known to be on Coumadin previously. The patient is confused and is unable to provide a further history or review of systems. PAST MEDICAL HISTORY: Coronary artery disease, status post CABG. Previous echo shows a left ventricular ejection fraction 55-60%, pulmonary artery systolic 34, dementia, diabetes, carotid artery surgery on the left side, hypertension, osteoarthritis, chronic hydrocele, benign prostatic hypertrophy. SOCIAL HISTORY: Resident of a long-term care facility, has a previous history of smoking, unable to quantify exactly at this time. ALLERGIES: There are multiple allergies listed on the records that this is reviewed. Per the notes from the hospitalist service, DEXAMETHASONE WAS HELD DUE TO ALLERGY. I DO SEE AN ALLERGY TO FLUDROCORTISONE; HOWEVER, I DO NOT SEE DOCUMENTATION OF A DEXAMETHASONE ALLERGY. CURRENT MEDICATIONS: List in [employer] reviewed. HOME MEDICATIONS: List in [employer] reviewed. Note, INR of 2.0. Note, absence of Coumadin [place] [address] CONSULTATION Name: SAUL MARCUS Room: [address]#: [id number] Admission: 06/01/21 Attend Phys: Nii Leonardo Discharge: Date of : 37 Report #: [id number] FAMILY HISTORY: Not available. PHYSICAL EXAMINATION: GENERAL: He is awake. He is confused. His vitals in the records reviewed. NECK: Does not show raised JVP. CHEST: Breath sounds bilaterally equal. No added sounds. HEART: Regular. No murmur. ABDOMEN: Soft and nontender. EXTREMITIES: Lower extremities, no edema, no calf tenderness. LABORATORY DATA: Chest x-ray from yesterday in [facility] reviewed. Venous Dopplers negative. He does have extensive bilateral infiltrates. ASSESSMENT AND PLAN: 1. Acute hypoxemic respiratory failure secondary to COVID-19. Continue to titrate oxygen. If he is able to wear a BiPAP while asleep, this will be of benefit. 2. COVID-19. I will investigate further regarding what his POSSIBLE ALLERGY TO DEXAMETHASONE IS. IF DEXAMETHASONE WAS ONLY HELD DUE TO REPORTED ALLERGY TO FLUDROCORTISONE, THEN I WOULD DISREGARD THIS AND I WOULD START DEXAMETHASONE, IF THERE IS A TRUE DEXAMETHASONE ALLERGY THEN WE CAN GIVE SOLU-MEDROL INSTEAD. I ordered 1 dose of Solu-Medrol now. I will investigate this further. Currently, the patient is ordered 6 mg of dexamethasone to start tomorrow. Considering severe hypoxemia, I will be inclined to increase this dose. The patient also is on remdesivir. I agree and will continue remdesivir. We will check on the availability of Actemra, if Actemra is available would recommend administering Actemra as well. 3. Pulmonary infiltrates. The patient is on levofloxacin. I do not feel strongly regarding broadening antibiotic coverage at this time. Note that the patient has a history of multiple allergies. I am not certain if the patient in fact is allergic to these medications should he decline or fail to improve, then recommend adding linezolid. I would check a nasal swab for methicillin-resistant Staphylococcus aureus. I will order a nasal swab for methicillin-resistant Staphylococcus aureus in case it is performed. It will be of benefit. 4. History of smoking/possible chronic obstructive pulmonary disease. He is on p.r.n. albuterol. I will order scheduled Brovana as well steroids as above. 5. Fluid overload/hypotension. I feel that he is total body fluid overloaded. He did have hypotension earlier, but blood pressure right now is in the range of 135 systolic. So, I went ahead and cautiously ordered a 100 of Aldactone and 20 of Lasix. Recommend also replacing his electrolytes. Recommend checking electrolytes tomorrow and replacing further as indicated. If he is hypotensive, then I recommend giving him p.r.n., midodrine. He has a midline [place] [address] CONSULTATION Name: SAUL MARCUS Room: [address] IN [facility].#: [id number] Admission: 06/01/21 Attend Phys: Nii Leonardo Discharge: Date of : 37 Report #: [id number] will not have a PICC line available this weekend, therefore it may be of benefit to proceed with a PICC line at this time if available. 6. Elevated INR, the patient either has a previous history of Coumadin use, which we are not available of or otherwise he is coagulopathic. We will repeat an INR now. I asked the patient's nurse to call the correction and we will try to find out if he had Coumadin use. I would repeat coags at this time as well. If he, in fact, does not have Coumadin use, then in that case, I will broaden antibiotic coverage and give him linezolid. 7. Evaluation for thromboembolic phenomena. Venous Dopplers are negative. He has a CTA chest ordered. We reviewed regarding whether he had Coumadin use previously or not as above. 8. Gastrointestinal prophylaxis, on Protonix. 9. Clostridium difficile prophylaxis, Lactinex. 10. Diabetes. He is already on an insulin sliding scale. The patient is critically ill at this time. Total time spent providing critical care to this patient today exceeds 42 minutes. <ELECTRONICALLY SIGNED> By: Mat Davidson MD 06/09/216 1446 Adl Davidson MD /nt
[2021-06-09 21:00] VITALS: BP 103/56
[2021-06-10] VITALS: BP 134/80
[2021-06-10 04:00] VITALS: BP 116/59
[2021-06-10 05:17] LABS: HEMATOCRIT 36.5 % (42.0-52.0); HEMOGLOBIN 11.8 gm/dL (14.0-18.0); MCH 29.8 pg (26.0-34.0); MCHC 32.4 g/dL (28.0-37.0); MCV 91.8 fL (80.0-100.0); MPV 9.1 fl. (7.2-11.1); NUCLEATED RBCS 0 /100WBC; PLATELET COUNT* 164 thou/uL (150-400); RBC 3.97 mil/uL (4.50-6.00); RDW-CV 13.3 % (10.5-14.5); WBC 20.2 thou/uL (4.0-11.0)
[2021-06-10 05:42] LABS: ALBUMIN 1.8 g/dL (3.4-5.0); CALCIUM 7.6 mg/dL (8.5-10.1); CREATININE 1.4 mg/dL (0.6-1.3); MAGNESIUM 1.9 mg/dL (1.8-2.4); POTASSIUM 4.3 mmol/L (3.5-5.1); TOTAL BILIRUBIN 0.4 mg/dL (<0.1-1.0); TOTAL PROTEIN 5.1 g/dL (6.4-8.2)
[2021-06-10 07:05] LABS: ABSOLUTE LYMPHOCYTES 0.4 thou/uL (0.8-5.3); ABSOLUTE MONOCYTES 0.4 thou/uL (0.0-1.2); ABSOLUTE NEUTROPHILS 19.4 thou/uL (1.6-8.1); PLATELET ESTIMATE ADEQUATE
[2021-06-10 09:00] VITALS: BP 115/67
[2021-06-10 12:00] VITALS: BP 76/76
[2021-06-10 16:00] VITALS: BP 122/70
[2021-06-10 18:32] LABS: BE 0.9 mmol/L (-2 to +3); PCO2 VENOUS 49.3 mmHg (41.0-51.0); PO2 VENOUS 47.2 mmHg (35.0-45.0)
[2021-06-10 20:45] VITALS: BP 117/59
[2021-06-11] VITALS: BP 100/56
[2021-06-11 04:00] VITALS: BP 120/58
[2021-06-11 08:00] VITALS: BP 107/55
[2021-06-11 12:14] VITALS: BP 122/50
[2021-06-11 16:19] VITALS: BP 110/61
[2021-06-11 20:02] LABS: ABSOLUTE LYMPHOCYTES 0.3 thou/uL (0.8-5.3); ABSOLUTE MONOCYTES 0.6 thou/uL (0.0-1.2); ABSOLUTE NEUTROPHILS 18.5 thou/uL (1.6-8.1); BASOPHILS 0.1 %; LYMPHOCYTES 1.4 %; MCH 30.2 pg (26.0-34.0); MCHC 32.2 g/dL (28.0-37.0); MCV 93.7 fL (80.0-100.0); MPV 10.3 fl. (7.2-11.1); NUCLEATED RBCS 0 /100WBC; PLATELET COUNT* 168 thou/uL (150-400); POLYS 95.5 %; RBC 3.64 mil/uL (4.50-6.00); RDW-CV 13.7 % (10.5-14.5); WBC 19.4 thou/uL (4.0-11.0)
[2021-06-11 20:16] LABS: ALBUMIN 1.7 g/dL (3.4-5.0); CALCIUM 7.1 mg/dL (8.5-10.1); CREATININE 2.2 mg/dL (0.6-1.3); POTASSIUM 4.1 mmol/L (3.5-5.1); TOTAL BILIRUBIN 0.3 mg/dL (<0.1-1.0); TOTAL PROTEIN 4.7 g/dL (6.4-8.2)
[2021-06-11 20:23] LABS: MAGNESIUM 1.9 mg/dL (1.8-2.4)
[2021-06-11 22:30] VITALS: BP 99/49
[2021-06-12 00:27] VITALS: BP 106/53
[2021-06-12 04:15] VITALS: BP 141/79
[2021-06-12 06:42] LABS: APTT 54.8 Seconds (25.0-31.3); INR 1.4; PROTIME 14.6 Seconds (9.20-11.50)
[2021-06-12 07:28] LABS: CALCIUM 7.6 mg/dL (8.5-10.1); POTASSIUM 4.3 mmol/L (3.5-5.1)
[2021-06-12 08:00] VITALS: BP 129/66
[2021-06-12 12:00] VITALS: BP 97/63
[2021-06-12 16:00] VITALS: BP 127/61
[2021-06-12 18:33] LABS: INR 1.3; PROTIME 13.5 Seconds (9.20-11.50)
[2021-06-12 22:00] VITALS: BP 122/61
[2021-06-13] VITALS (7 sets, daily range): BP systolic 109–163; BP diastolic 52–88
[2021-06-13 14:39] LABS: ABSOLUTE BASOPHILS 0.1 thou/uL (0.0-0.2); ABSOLUTE LYMPHOCYTES 0.2 thou/uL (0.8-5.3); ABSOLUTE MONOCYTES 0.2 thou/uL (0.0-1.2); ABSOLUTE NEUTROPHILS 19.9 thou/uL (1.6-8.1); BASOPHILS 0.4 %; HEMATOCRIT 34.4 % (42.0-52.0); HEMOGLOBIN 11.4 gm/dL (14.0-18.0); LYMPHOCYTES 1.1 %; MCH 30.2 pg (26.0-34.0); MCV 91.4 fL (80.0-100.0); MONOCYTES 1.1 %; MPV 10.3 fl. (7.2-11.1); NUCLEATED RBCS 0 /100WBC; PLATELET COUNT* 145 thou/uL (150-400); POLYS 97.4 %; RBC 3.76 mil/uL (4.50-6.00); RDW-CV 13.6 % (10.5-14.5); WBC 20.5 thou/uL (4.0-11.0)
[2021-06-13 14:59] LABS: INR 1.4; PROTIME 13.7 Seconds (9.20-11.50)
[2021-06-13 15:05] LABS: ALBUMIN 2.5 g/dL (3.4-5.0); CREATININE 2.1 mg/dL (0.6-1.3); POTASSIUM 4.3 mmol/L (3.5-5.1); TOTAL BILIRUBIN 0.4 mg/dL (<0.1-1.0); TOTAL PROTEIN 5.4 g/dL (6.4-8.2)
[2021-06-13 15:09] LABS: APTT 37.4 Seconds (25.0-31.3)
[2021-06-13 15:13] LABS: URINE BILIRUBIN NEGATIVE (Negative); URINE BLOOD 3+ (Negative); URINE CLARITY CLEAR; URINE COLOR YELLOW; URINE GLUCOSE-RANDOM NEGATIVE (Negative); URINE KETONES NEGATIVE (Negative); URINE LEUKOCYTES TRACE (Negative); URINE NITRITE NEGATIVE (Negative); URINE PROTEIN 1+ (Negative); URINE SPECIFIC GRAVITY >= 1.030 (1.005-1.030); URINE UROBILINOGEN 0.2 E.U./dl (0.2-1.0)
[2021-06-13 15:19] LABS: SQUAMOUS 0-3 Few /LPF (0-3)
[2021-06-13 15:20] LABS: BACTERIA 1-9 Few /HPF (None Seen); CASTS None Seen /LPF (None Seen); CRYSTALS None Seen /LPF (None Seen); URINE WBC 0-5 Rare /HPF (0-5)
[2021-06-14 04:48] VITALS: BP 161/78
[2021-06-14 06:12] LABS: CALCIUM 8.1 mg/dL (8.5-10.1); CREATININE 1.7 mg/dL (0.6-1.3); POTASSIUM 3.9 mmol/L (3.5-5.1)
[2021-06-14 08:00] VITALS: BP 114/100; BP 156/95
[2021-06-14 16:00] VITALS: BP 124/63
[2021-06-14 20:00] VITALS: BP 111/61
[2021-06-15] VITALS: BP 105/57
[2021-06-15 04:00] VITALS: BP 109/68
[2021-06-15 06:13] LABS: ALBUMIN 2.2 g/dL (3.4-5.0); CALCIUM 7.4 mg/dL (8.5-10.1); CREATININE 1.9 mg/dL (0.6-1.3); HEMATOCRIT 29.2 % (42.0-52.0); HEMOGLOBIN 9.8 gm/dL (14.0-18.0); MAGNESIUM 2.2 mg/dL (1.8-2.4); MCH 30.7 pg (26.0-34.0); MCHC 33.7 g/dL (28.0-37.0); MCV 91.2 fL (80.0-100.0); MPV 10.7 fl. (7.2-11.1); NUCLEATED RBCS 0 /100WBC; POTASSIUM 3.4 mmol/L (3.5-5.1); RDW-CV 13.8 % (10.5-14.5); TOTAL BILIRUBIN 0.6 mg/dL (<0.1-1.0); TOTAL PROTEIN 4.5 g/dL (6.4-8.2); WBC 10.7 thou/uL (4.0-11.0)
[2021-06-15 06:30] LABS: PLATELET COUNT* 70 thou/uL (150-400)
[2021-06-15 07:58] LABS: ABSOLUTE LYMPHOCYTES 0.9 thou/uL (0.8-5.3); ABSOLUTE MONOCYTES 0.1 thou/uL (0.0-1.2); ABSOLUTE NEUTROPHILS 9.7 thou/uL (1.6-8.1)
[2021-06-15 07:59] LABS: HYPOCHROMASIA 1+; PLATELET ESTIMATE DECREASED
[2021-06-15 08:00] VITALS: BP 123/73
[2021-06-15 08:00] LABS: MICROCYTES Occasional
[2021-06-15 11:51] VITALS: BP 96/52
[2021-06-15 15:41] VITALS: BP 134/65
[2021-06-15 16:11] LABS: BE 0.6 mmol/L (-2 to +3); PO2 VENOUS 45.7 mmHg (35.0-45.0)
[2021-06-15 20:49] VITALS: BP 171/86
[2021-06-15 20:53] LABS: CALCIUM 7.2 mg/dL (8.5-10.1); CREATININE 1.7 mg/dL (0.6-1.3); MAGNESIUM 2.4 mg/dL (1.8-2.4)
[2021-06-16 04:42] LABS: ABSOLUTE BASOPHILS 0.1 thou/uL (0.0-0.2); ABSOLUTE LYMPHOCYTES 0.3 thou/uL (0.8-5.3); ABSOLUTE MONOCYTES 0.4 thou/uL (0.0-1.2); ABSOLUTE NEUTROPHILS 14.2 thou/uL (1.6-8.1); BASOPHILS 0.5 %; HEMATOCRIT 32.7 % (42.0-52.0); HEMOGLOBIN 10.7 gm/dL (14.0-18.0); LYMPHOCYTES 2.1 %; MCH 30.3 pg (26.0-34.0); MCHC 32.6 g/dL (28.0-37.0); MONOCYTES 2.5 %; MPV 10.7 fl. (7.2-11.1); NUCLEATED RBCS 0 /100WBC; PLATELET COUNT* 67 thou/uL (150-400); POLYS 94.9 %; RBC 3.52 mil/uL (4.50-6.00); RDW-CV 13.8 % (10.5-14.5)
[2021-06-16 05:17] LABS: ALBUMIN 2.2 g/dL (3.4-5.0); CALCIUM 7.4 mg/dL (8.5-10.1); CREATININE 1.8 mg/dL (0.6-1.3); MAGNESIUM 2.5 mg/dL (1.8-2.4); POTASSIUM 4.3 mmol/L (3.5-5.1); TOTAL BILIRUBIN 0.5 mg/dL (<0.1-1.0); TOTAL PROTEIN 4.7 g/dL (6.4-8.2)
[2021-06-16 08:00] VITALS: BP 104/59
[2021-06-16 11:55] VITALS: BP 96/62
[2021-06-16 16:03] VITALS: BP 90/50
[2021-06-16 19:45] VITALS: BP 82/44
[2021-06-17 00:30] VITALS: BP 98/53
[2021-06-17 04:00] VITALS: BP 108/60
[2021-06-17 05:52] LABS: ABSOLUTE BASOPHILS 0.1 thou/uL (0.0-0.2); ABSOLUTE LYMPHOCYTES 0.5 thou/uL (0.8-5.3); ABSOLUTE MONOCYTES 0.6 thou/uL (0.0-1.2); ABSOLUTE NEUTROPHILS 17.9 thou/uL (1.6-8.1); BASOPHILS 0.4 %; HEMATOCRIT 30.3 % (42.0-52.0); HEMOGLOBIN 9.9 gm/dL (14.0-18.0); LYMPHOCYTES 2.8 %; MCH 30.2 pg (26.0-34.0); MCHC 32.7 g/dL (28.0-37.0); MCV 92.4 fL (80.0-100.0); MONOCYTES 3.4 %; NUCLEATED RBCS 0 /100WBC; PLATELET COUNT* 70 thou/uL (150-400); POLYS 93.4 %; RBC 3.28 mil/uL (4.50-6.00); RDW-CV 13.9 % (10.5-14.5); WBC 19.2 thou/uL (4.0-11.0)
[2021-06-17 06:02] LABS: INR 1.4; PROTIME 14.2 Seconds (9.20-11.50)
[2021-06-17 06:12] LABS: CALCIUM 7.4 mg/dL (8.5-10.1); CREATININE 2.3 mg/dL (0.6-1.3); MAGNESIUM 2.6 mg/dL (1.8-2.4); POTASSIUM 4.3 mmol/L (3.5-5.1); TOTAL BILIRUBIN 0.6 mg/dL (<0.1-1.0); TOTAL PROTEIN 4.5 g/dL (6.4-8.2)
[2021-06-17 07:15] LABS: GIANT PLATELETS OCCASIONAL; PLATELET ESTIMATE DECREASED
[2021-06-17 08:00] VITALS: BP 92/50
[2021-06-17 12:00] VITALS: BP 100/44
[2021-06-17 16:00] VITALS: BP 91/48
[2021-06-17 19:45] VITALS: BP 134/75
[2021-06-18] VITALS: BP 91/61
[2021-06-18 03:59] VITALS: BP 90/57
[2021-06-18 07:45] VITALS: BP 122/60
[2021-06-18 11:59] VITALS: BP 94/49
[2021-06-18 12:12] LABS: BE -2.3 mmol/L (-2 to +3); PCO2 36.8 mmHg (35.0-45.0); pH 7.398 (7.340-7.450)
[2021-06-18 12:14] LABS: PO2 48.5 mmHg (75.0-100.0)
[2021-06-18 20:00] VITALS: BP 96/46
[2021-06-19] MEDS ORDERED: MORPHINE S20 MG/5 ML SUBLING (07:23)
[2021-06-19] MEDS ORDERED: LORAZEPAM0.5 MG/1 M SUBLING (07:23)
[2021-06-19] MEDS ORDERED: IPRAT-ALBUT 0.5-3 ML INH (07:23)
[2021-06-19 08:00] VITALS: BP 63/34
== END 2021-06-19 12:08 | DRG 177 ==
LOC: M.ERS 12:31 → M.TBA-ER 14:00 → M.ORTHSURG 14:00 → M.ICU 06-16 17:24 → M.ORTHSURG 06-16 17:24 → M.ICU 06-16 17:24 → M.ORTHSURG 06-16 17:52
PROVIDERS: Emergency Medicine Emergency Medical Services; Internal Medicine; Internal Medicine Critical Care Medicine; Internal Medicine Hematology & Oncology; Nurse Practitioner Family; ADMIT Internal Medicine; ATTEND Internal Medicine
PROC: 5A0945A Assistance with Respiratory Ventilation, 24-96 Consecutive Hours, High Flow/Velocity Cannula (ICD-10-PCS; principal; 2021-06-01)
PROC: 05HF33Z Insertion of Infusion Device into Left Cephalic Vein, Percutaneous Approach (ICD-10-PCS; 2021-06-03)
PROC: 5A09357 Assistance with Respiratory Ventilation, Less than 24 Consecutive Hours, Continuous Positive Airway Pressure (ICD-10-PCS; 2021-06-04)
PROC: XW033E5 Introduction of Remdesivir Anti-infective into Peripheral Vein, Percutaneous Approach, New Technology Group 5 (ICD-10-PCS; 2021-06-05)
PROC: 5A09357 Assistance with Respiratory Ventilation, Less than 24 Consecutive Hours, Continuous Positive Airway Pressure (ICD-10-PCS; 2021-06-05)
PROC: 5A0935A Assistance with Respiratory Ventilation, Less than 24 Consecutive Hours, High Flow/Velocity Cannula (ICD-10-PCS; 2021-06-05)
PROC: 5A0935A Assistance with Respiratory Ventilation, Less than 24 Consecutive Hours, High Flow/Velocity Cannula (ICD-10-PCS; 2021-06-06)
PROC: 5A09357 Assistance with Respiratory Ventilation, Less than 24 Consecutive Hours, Continuous Positive Airway Pressure (ICD-10-PCS; 2021-06-06)
PROC: 5A0935A Assistance with Respiratory Ventilation, Less than 24 Consecutive Hours, High Flow/Velocity Cannula (ICD-10-PCS; 2021-06-07)
PROC: 5A09357 Assistance with Respiratory Ventilation, Less than 24 Consecutive Hours, Continuous Positive Airway Pressure (ICD-10-PCS; 2021-06-07)
PROC: 5A09357 Assistance with Respiratory Ventilation, Less than 24 Consecutive Hours, Continuous Positive Airway Pressure (ICD-10-PCS; 2021-06-08)
PROC: 5A0935A Assistance with Respiratory Ventilation, Less than 24 Consecutive Hours, High Flow/Velocity Cannula (ICD-10-PCS; 2021-06-08)
PROC: 5A0935A Assistance with Respiratory Ventilation, Less than 24 Consecutive Hours, High Flow/Velocity Cannula (ICD-10-PCS; 2021-06-09)
PROC: 5A09357 Assistance with Respiratory Ventilation, Less than 24 Consecutive Hours, Continuous Positive Airway Pressure (ICD-10-PCS; 2021-06-10)
PROC: 5A0945A Assistance with Respiratory Ventilation, 24-96 Consecutive Hours, High Flow/Velocity Cannula (ICD-10-PCS; 2021-06-11)
PROC: 5A0935A Assistance with Respiratory Ventilation, Less than 24 Consecutive Hours, High Flow/Velocity Cannula (ICD-10-PCS; 2021-06-15)
PROC: 5A0935A Assistance with Respiratory Ventilation, Less than 24 Consecutive Hours, High Flow/Velocity Cannula (ICD-10-PCS; 2021-06-17)
PROC: 5A0935A Assistance with Respiratory Ventilation, Less than 24 Consecutive Hours, High Flow/Velocity Cannula (ICD-10-PCS; 2021-06-18)
DX: U07.1 COVID-19 (principal); I21.A1 Myocardial infarction type 2; J12.82 Pneumonia due to coronavirus disease 2019; J80 Acute respiratory distress syndrome; I26.99 Other pulmonary embolism without acute cor pulmonale; I50.33 Acute on chronic diastolic (congestive) heart failure; N40.0 Benign prostatic hyperplasia without lower urinary tract symptoms; K21.9 Gastro-esophageal reflux disease without esophagitis; M19.042 Primary osteoarthritis, left hand; I25.10 Atherosclerotic heart disease of native coronary artery without angina pectoris; E87.5 Hyperkalemia; F03.90 Unspecified dementia, unspecified severity, without behavioral disturbance, psychotic disturbance, mood disturbance, and anxiety; I95.9 Hypotension, unspecified; E87.70 Fluid overload, unspecified; E11.65 Type 2 diabetes mellitus with hyperglycemia; N43.3 Hydrocele, unspecified; E83.42 Hypomagnesemia; I11.0 Hypertensive heart disease with heart failure; E83.39 Other disorders of phosphorus metabolism; E87.6 Hypokalemia; Z66 Do not resuscitate; N40.1 Benign prostatic hyperplasia with lower urinary tract symptoms; K56.41 Fecal impaction; R33.8 Other retention of urine; R31.0 Gross hematuria; C80.1 Malignant (primary) neoplasm, unspecified; Z88.6 Allergy status to analgesic agent; Z88.0 Allergy status to penicillin; Z88.8 Allergy status to other drugs, medicaments and biological substances; Z95.1 Presence of aortocoronary bypass graft; Z79.82 Long term (current) use of aspirin; Z79.899 Other long term (current) drug therapy; Z51.5 Encounter for palliative care